=== PATIENT | female | born 2000 | race Caucasian/White ===

== ENCOUNTER 2024-12-01 01:53 | Emergency (ER) | payer BC, SELFPAY ==
[2024-12-01 01:56] VITALS: BP 90/60
[2024-12-01 03:27] VITALS: BP 90/64
[2024-12-01 04:00] VITALS: BP 96/59
[2024-12-01 05:00] VITALS: BP 99/72
--- NOTE | 2024-12-01 06:27 | ED.GENMED ---
History of Present Illness
General
Chief Complaint: Musculo-Skeletal Complaint
Source: patient
Exam Limitations: none
Time Seen by Provider: 12/01/24 04:26
Nursing documentation reviewed up to this point in time: agreed with
History of Present Illness
History of Present Illness:
Note:
CHIEF COMPLAINT(S)
Pain in the right ankle and foot area.
HISTORY OF PRESENT ILLNESS
The patient is a 24-year-old female who presented with a chief complaint of pain in the right ankle and foot area. The onset of symptoms began two days ago following the initiation of a running regimen, which the patient had not previously been
engaged in regularly. The pain was described as a 'really weird pain' that was initially mild but progressively worsened throughout the day. The patient awoke at approximately 12:30 AM with excruciating pain, rendering her unable to walk or move the
affected area. She reports some relief after taking ibuprofen and icing the area, with the pain being less severe at the time of the visit. She denied any specific injury or twisting of the ankle and notes that she has not had similar pain before,
although she has experienced plantar fasciitis in the past, which she asserts feels different than her current condition. She has not experienced any numbness or tingling. Swelling was noted earlier in the day, but the patient feels it has
diminished following the aforementioned treatment. Toe movement triggers mild pain, but not excessive. She denies any other injuries.
PAST MEDICAL HISTORY
History of plantar fasciitis.
PHYSICAL EXAM
Nursing notes reviewed and vital signs reviewed.
General: Patient is well appearing and in no acute distress; non-toxic
Skin: Warm and dry, no rashes or lesions
Head: Normocephalic, atraumatic
Eyes: Sclera non-icteric. EOMs intact.
Cardiac: Regular rate
Peripheral Vascular: No lower extremity swelling or edema
Pulm: Normal respiratory effort, no wheezes, rales,, or rhonchi
MSK: Full ROM of bilateral lower ext, right ankle joint stable negative ant drawer, no laxity with varus valgus stress
Neuro: CN II-XII intact, no focal neurologic deficits. Sensation intact.
Psychiatric: Appropriate mood and affect.
PROBLEM LIST
- Acute Problems:
- Right ankle and foot pain following the initiation of running.
PLAN
- Apply an Aircast to immobilize the ankle, wearing it for a few days.
- Recommend home care with elevation, continued use of ibuprofen, and rest from running.
- Encourage gradual mobilization once the pain begins to subside.
- Consider further orthotic support if required, including insoles for foot arch support.
- Provide contact information for an orthopedist for further evaluation if symptoms worsen or do not improve.
DIFFERENTIAL DIAGNOSIS
The Differential Diagnosis includes, in no particular order and is not limited to:
1. Ankle sprain
2. Soft tissue contusion
3. Ligament tear
4. Tendinitis
5. Stress fracture
6. Plantar fasciitis
7. Osteoarthritis
8. Rheumatoid arthritis
9. Tarsal tunnel syndrome
10. Complex regional pain syndrome
Disposition:
SUMMARY OF ENCOUNTER
A 24-year-old female presented to the emergency department with concerns of right ankle pain, which began after an episode of running. The patient reported comfort at rest but pain upon bearing weight or moving the ankle. An examination showed a
stable ankle joint without ligament laxity, but pain was noted with stress. X-ray findings indicated no acute fracture, suggesting a possible acute ankle sprain. Conservative management was discussed, including the use of an Aircast and follow-up
with orthopedics. Return precautions were thoroughly reviewed with the patient.
DISPOSITION
Discharge.
ASSESSMENT
Suspected acute ankle sprain.
PLAN
Apply an Aircast for ankle immobilization, educate the patient on proper usage, and advise rest from activities that cause pain. Instruct the patient to follow up with an orthopedist for further evaluation and management. Educate on signs and
symptoms that warrant immediate return to the emergency department.
INDEPENDENT REVIEW OF LABS AND INTERPRETATION OF TESTS
My independent review of the X-ray indicates no evidence of an acute fracture.
PATIENT EDUCATION AND COUNSELING
Discussed the importance of immobilizing the affected ankle with an Aircast and avoiding activities that exacerbate the pain. Explained the importance of follow-up with orthopedics and provided strict return precautions in case of worsening symptoms
or lack of improvement.
FOLLOW-UP INSTRUCTIONS
Follow up with orthopedics as instructed.
MEDICATION RECONCILIATION
Ibuprofen was recommended for pain management, if needed, as previously mentioned by the patient.
MEDICAL DECISION MAKING
-Complexity of Data Reviewed: The Differential Diagnosis includes ankle sprain, soft tissue contusion, ligament tear, tendinitis, stress fracture, plantar fasciitis, osteoarthritis, rheumatoid arthritis, tarsal tunnel syndrome, and complex regional
pain syndrome.
-Data:
Category 1: Clinical information was gathered from patients report and physical examination. An X-ray was ordered and reviewed independently to rule out fracture.
-Risk: Consideration of Admission/Observation: Escalation of care including admission/observation was considered given the complexity and risk of the patients presenting complaint, exam findings, and underlying comorbidities. However, ultimately, I
feel the patient is safe for outpatient management with close follow-up. Reasoning: Work-up reassuring, does not reveal any acute life/organ-threatening processes, patients symptoms well-controlled upon reevaluation, reexamination is reassuring,
vitals are stable, patient agreeable with discharge, and reliable for follow-up.
DIAGNOSIS
Ankle sprain, unspecified, initial encounter (ICD-10: S93.401A)
Past History
Past History
ED Past Medical History: None
Social History
Tobacco: Non-smoker
Phy Exam
Physical Exam
Physical Exam:
see hpi
Course
Orders/Labs/Results
Orders:
Orders
12/01/24 01:58
Ankle, Right 3 view CR [CR Ankle - Right Min 3 Views *] Urgent
Comment:
Reason For Exam: RUNNING INJURY
12/01/24 04:45
Air Splint Right-Treatment ONCE
Vital Signs
Initial and Last Documented VS:
Initial Vital Signs
Temp Pulse Resp BP Pulse Ox
98 F 86 18 90/60 98
12/01/24 01:56 12/01/24 01:56 12/01/24 01:56 12/01/24 01:56 12/01/24 01:56
Last Documented Vital Signs
Temp Pulse Resp BP Pulse Ox
98 F 84 16 99/72 97
12/01/24 01:56 12/01/24 05:22 12/01/24 05:22 12/01/24 05:00 12/01/24 06:28
*Pulse Oximetry
SaO2: 97
Oxygen Mode of Delivery: Room air
Patient hypoxic: no
*Critical Care Note
Total Time (30-74mins, 75-104mins- exclusive of procedures): Not Applicable
ED Attending Note
-
Portions of this chart may have been created with voice recognition software.� Occasional wrong word or��sound alike� substitutions may have occurred due to the inherent limitations of voice recognition software.
Discharge Plan
Departure
Patient Disposition: Home (Routine Discharge)
Date of Disposition: 12/01/24
Time of Disposition: 04:56
Patient with high blood pressure during this ER visit?: No
Condition: Good
Discharge Problem:
Right ankle sprain
Instructions: Muscle and Bone Pain (DC), Ankle sprain - ED discharge instructions
Referrals:
[facility] [Provider Group] - Call in 1-3 days for appt
Danyel Robin DO [Family Provider, Family Practice]
Theo Bryant DPM [Active, Podiatry] - Call in 1-3 days for appt
Activity Restrictions/Additional Instructions:
Please wear your air splint for the next few days. Please keep your foot elevated at home. Please minimize weightbearing but you can weight-bear as tolerated. Please continue to monitor your symptoms, you can call attached number to schedule
follow-up appointment with orthopedics.
PLEASE RETURN EMERGENCY DEPARTMENT SHOULD YOU DEVELOP AN ACUTE WORSENING OF YOUR PAIN, INABILITY TO AMBULATE, LOSS OF SENSATION IN YOUR LOWER EXTREMITY, PALLOR, INCREASING SWELLING, OR ANY OTHER SIGNS OR SYMPTOMS WORRISOME TO YOU. YOU CAN CONTINUE
TO TAKE IBUPROFEN FOR PAIN.
Interventions
Interventions:
*Risk Screen - Suicide Last Done: 12/01/24 01:56
*General Assessment Last Done: 12/01/24 03:28
*Neglect/Abuse Screening Last Done: 12/01/24 01:56
*ED- Fall Risk Assessment Last Done: 12/01/24 03:28
*ED COVID-19 Vaccine History Last Done: 12/01/24 03:28
*Nursing Disposition Last Done: 12/01/24 05:23
ED-Musculoskeletal Assessment Last Done: 12/01/24 03:29
Discharge Date and Time
Discharge Date/Time: 12/01/24 05:24
Print Language: CYMRAES
== END 2024-12-01 05:24 | disposition home or self-care (01) ==
LOC: EMR 01:53
PROVIDERS: EMERGENCY PHYSICIAN Emergency Medicine; FAMILY PHYSICIAN Family Medicine
DX: S93.401A Sprain of unspecified ligament of right ankle, initial encounter (principal); X58.XXXA Exposure to other specified factors, initial encounter
CPT/HCPCS: 99283; 73610